=== PATIENT | male | born 1955 | race Caucasian/White ===

== ENCOUNTER 2021-09-25 20:22 | Emergency (ER) | payer MEDICARE, SELFPAY ==
[2021-09-25 20:22] VITALS: BP 180/96; PULSE 76; RESP 16; TEMP 36.8; O2SAT 98; BMI 25.8
[2021-09-25 21:23] LABS: Color, Urine Yellow (Yellow); Glucose, Dipstick Normal (Normal); Ketone-Dipstick 15 mg/dl (Negative); Leukocyte Esterase-Dipstick 25 /ul (Negative); Nitrite-Dipstick Negative (Negative); Occult Blood-Urine 150 /ul (Negative); Protein-Dipstick 30 mg/dl (Negative); Urine Bilirubin Dipstick Negative (Negative); Urine Clarity Clear (Clear); Urine Urobilinogen 1 mg/dl (Normal)
--- NOTE | 2021-09-25 21:29 | CT_ITS ---
STUDY: CT ABDOMEN AND PELVIS WITHOUT CONTRAST REASON FOR EXAM: Male, 66 years old. Kidney Stone RT SIDED ABD PAIN HX:KIDNEY STONES RADIATION DOSAGE (If Supplied By Facility): CTDIvol = ( 9.25 ) mGy, DLP = ( 506.24 ) mGycm TECHNIQUE: Transaxial images were obtained from the dome of the diaphragm to the symphysis pubis without oral contrast, and without intravenous contrast. Sagittal and coronal images were reconstructed. Individualized dose optimization techniques were used for this CT. COMPARISON: None. FINDINGS: LOWER CHEST: Included lung bases are clear. Moderate coronary artery calcifications. LIVER: Small cyst in the left lobe. GALLBLADDER AND BILIARY TREE: Grossly unremarkable. PANCREAS: Grossly unremarkable. SPLEEN: Grossly unremarkable. ADRENAL GLANDS: Grossly unremarkable. KIDNEYS AND URETERS: There is a 3 mm calculus in the distal right ureter immediately proximal to the ureterovesical junction. Right ureter is dilated with moderate right hydronephrosis, perinephric and periureteral stranding. No other calculi demonstrated. No hydronephrosis on the left. Small low-attenuation structures in the right kidney likely cysts but not completely assessed without contrast. PERITONEUM: No free air. No free fluid. BOWEL: Diverticula throughout the colon No bowel obstruction. APPENDIX: Visualized and unremarkable. No evidence of acute appendicitis. VESSELS: Abdominal aorta is normal caliber. REPRODUCTIVE ORGANS: Prostate enlarged. URINARY BLADDER: Minimally distended. ABDOMINAL WALL: Small bilateral inguinal hernias containing only fat, no bowel. BONES: Bilateral pars defects at L5 with grade 2 spondylolisthesis at L5-S1, and degenerative changes. CT/Abdomen/Pelvis without Cont IMPRESSION: Distal right ureteral calculus with moderate right hydroureteronephrosis. Enlarged prostate. Colonic diverticulosis without evidence of acute diverticulitis. Electronically Signed: Helena Griggs MD at 22:14 EDT ,
--- NOTE | 2021-09-25 21:30 | EX.ED.DYSGE1 ---
HPI History of Present Illness Chief Complaint: Flank Pain Narrative Narrative: Intermittent right flank pain started Thursday evening lasted 2 hours. This evening it returned. No dysuria. No fevers. No nausea or vomiting. Currently symptoms subsided. History of multiple kidney stones in the past however last time was over 10 years ago. No interventions. He denies any other past medical history no daily medicines however is not seen a PCP in 10 years. Denies any allergies. Prior similar symptoms: Yes PFSH PFSH Home Medications ibuprofen 600 mg tablet 600 mg PO 4X/DAY PRN Pain Or Fever #20 tabs 09/25/21 [Rx Last Taken Unknown] ondansetron 4 mg disintegrating tablet 4 mg PO Q6H PRN nausea and vomiting #10 tabs 09/25/21 [Rx Last Taken Unknown] oxycodone-acetaminophen 5 mg-325 mg tablet (Percocet) 1 tab PO Q6H PRN pain 3 days #12 tabs 09/25/21 [Rx Last Taken Unknown] Allergy/AdvReac Type Severity Reaction Status Date / Time No Known Allergies Allergy Verified 09/25/21 20:24 Social History Smoking Status: Never smoker ROS ROS ED Constitutional Constitutional ED: Denies chills, fever(s) or sweats Eyes Eyes: Denies change in vision ENT ENT ED: Denies dysphagia or sore throat Cardiovascular Cardiovascular: Denies chest pain, leg edema, palpitations or racing heartbeat Respiratory/Chest Respiratory/Chest: Denies cough, dyspnea or dyspnea on exertion Gastrointestinal Gastrointestinal: Denies abdominal pain, diarrhea, nausea or vomiting Genitourinary Genitourinary ED: Denies dysuria, hematuria or urinary frequency Musculoskeletal Musculoskeletal: Reports back pain; Denies extremity pain or neck pain Integumentary Denies rash or wounds Neurologic Neurologic: Denies headache(s), paresthesias or weakness EXAM Physical Exam Const Vital Signs: 09/25/21 20:22 09/25/21 21:45 09/25/21 21:55 Temperature 98.2 F Temperature Source Temporal Pulse Rate 76 Respiratory Rate 16 17 Respiratory Effort Normal Blood Pressure 180/96 H Blood Pressure Mean 124 Pulse Ox 98 Oxygen Delivery Method Room Air 09/25/21 22:57 Temperature Temperature Source Pulse Rate 66 Respiratory Rate 17 Respiratory Effort Blood Pressure 128/74 H Blood Pressure Mean Pulse Ox 99 Oxygen Delivery Method Positive well nourished and well developed General Appearance ED: well developed and NAD HEENT Reports moist mucous membranes normocephalic and atraumatic Eyes PERRL, EOMs intact bilaterally and conjunctivae normal General Eye ED: Yes normal appearance of both eyes Neck no lymphadenopathy and supple General: Negative for tenderness Chest Wall Chest: Negative for tenderness Resp normal respiratory effort and normal air movement Effort and Inspection: symmetric chest movement; Negative for respiratory distress Cardio regular rate, regular rhythm and no murmurs Peripheral Pulses: pulses 2+ throughout GI normal to inspection, nondistended, normoactive bowel sounds and non-tender Palpation: Negative for guarding or rebound tenderness present Back/Spine no CVA tenderness and no thoracic nor lumbar tenderness Extremity normal to inspection General Extremety ED: Negative for edema or tenderness General Extremity: Negative for edema Neuro oriented x3 and no sensory deficits noted Sensorium / Orientation: awake and alert Skin no rashes or lesions noted and no wounds MDM MDM MDM Narrative Medical decision making narrative: Patient reporting colic symptoms currently was in no signal discomfort. However there is history work-up was initiated. Labs are stable urine notes hematuria with no infection. Prior to go to CT pain was increasing improved with Toradol. Zofran also given. CT scan results 3 mm right distal ureteral stone with hydronephrosis also noted stranding in the area. However there is no infection. Pain controlled on reevaluation. Prescription for Zofran, ibuprofen, Percocet written for symptom control urology follow-up with return precautions. All questions were answered. Lab Data Attestation: I reviewed the patient's lab results. Labs: Laboratory Results - last 24 hr 09/25/21 09/25/21 09/25/21 20:44 21:40 21:40 WBC 9.6 RBC 4.50 L Hgb 14.9 Hct 43.5 MCV 96.7 H MCH 33.1 H MCHC 34.3 RDW Std Deviation 47.0 H RDW Coeff of Monica 13.2 Plt Count 324 MPV 9.2 Immature Gran % (Auto) 0.300 Neut % (Auto) 76.7 H Lymph % (Auto) 15.7 L [place] % (Auto) 6.0 Eos % (Auto) 0.9 Baso % (Auto) 0.4 Absolute Neuts (auto) 7.3 Absolute Lymphs (auto) 1.50 Nucleated RBC % 0 Sodium 137 Potassium 3.6 Chloride 104 Carbon Dioxide 25.0 Anion Gap 8 BUN 18 Creatinine 0.93 Estim Creat Clear Calc 73.55 Est GFR (MDRD) Af Amer 104 Est GFR (MDRD) Non-Af 86 BUN/Creatinine Ratio 19.3 Glucose 126 H Calcium 9.1 Urine Color Yellow Urine Clarity Clear Urine pH 5.0 Ur Specific [place] 1.030 U Specif Grav (Refrac) Urine Protein 30 H Urine Glucose (UA) Normal Urine Ketones 15 H Urine Occult Blood 150 H Urine Nitrite Negative Urine Bilirubin Negative Urine Urobilinogen 1 H Ur Leukocyte Esterase 25 H Urine RBC 5-10 SEEN Urine WBC 0-5 SEEN Ur Squamous Epith Cells 0-5 SEEN Ur Transition Epith Cell Ur Renal Epithelial Cell Calcium Oxalate Crystal 4+ Uric Acid Crystals Triple Phos Crystals Other Crystals Amorphous Sediment Urine Bacteria 1+ Hyaline Casts Fine Granular Casts Coarse Granular Casts Waxy Casts RBC Casts WBC Casts Urine Mucus 2+ Urine Trichomonas Urine Yeast 09/25/21 21:44 WBC RBC Hgb Hct MCV MCH MCHC RDW Std Deviation RDW Coeff of Monica Plt Count MPV Immature Gran % (Auto) Neut % (Auto) Lymph % (Auto) [place] % (Auto) Eos % (Auto) Baso % (Auto) Absolute Neuts (auto) Absolute Lymphs (auto) Nucleated RBC % Sodium Potassium Chloride Carbon Dioxide Anion Gap BUN Creatinine Estim Creat Clear Calc Est GFR (MDRD) Af Amer Est GFR (MDRD) Non-Af BUN/Creatinine Ratio Glucose Calcium Urine Color Cancelled Urine Clarity Cancelled Urine pH Cancelled Ur Specific [place] Cancelled U Specif Grav (Refrac) Cancelled Urine Protein Cancelled Urine Glucose (UA) Cancelled Urine Ketones Cancelled Urine Occult Blood Cancelled Urine Nitrite Cancelled Urine Bilirubin Cancelled Urine Urobilinogen Cancelled Ur Leukocyte Esterase Cancelled Urine RBC Cancelled Urine WBC Cancelled Ur Squamous Epith Cells Cancelled Ur Transition Epith Cell Cancelled Ur Renal Epithelial Cell Cancelled Calcium Oxalate Crystal Cancelled Uric Acid Crystals Cancelled Triple Phos Crystals Cancelled Other Crystals Cancelled Amorphous Sediment Cancelled Urine Bacteria Cancelled Hyaline Casts Cancelled Fine Granular Casts Cancelled Coarse Granular Casts Cancelled Waxy Casts Cancelled RBC Casts Cancelled WBC Casts Cancelled Urine Mucus Cancelled Urine Trichomonas Cancelled Urine Yeast Cancelled Radiography Diagnostic Testing: Clinical Impression(s) from Imaging Studies Abdomen/Pelvis CT 09/25/21 21:29 IMPRESSION: Distal right ureteral calculus with moderate right hydroureteronephrosis. Enlarged prostate. Colonic diverticulosis without evidence of acute diverticulitis. Electronically Signed: Helena Griggs MD at 22:14 EDT Reading Location ID and State: [address] [place] [address] Tel , Service support , Discharge Plan Triage Chief Complaint: Flank Pain ED Provider: Shimon Luz Dx/Rx/DC Orders Clinical Impression: Kidney stone on right side, Hematuria Instructions: ED Hematuria, ED Kidney Stone w/ Colic Prescriptions: New oxycodone-acetaminophen [Percocet] 5-325 mg tablet 1 tab PO Q6H PRN (Reason: pain) 3 Days Qty: 12 0RF ibuprofen 600 mg tablet 600 mg PO 4X/DAY PRN (Reason: Pain Or Fever) Qty: 20 0RF ondansetron 4 mg tablet,disintegrating 4 mg PO Q6H PRN (Reason: nausea and vomiting) Qty: 10 0RF Primary Care Provider: Care Physician,No Primary Referrals: Darion Howard MD [NON-STAFF] - Ghulam Watt MD [STAFF PHYSICIAN] - 3-5 Days Activity Restrictions/Additional Instructions: 3 mm right distal ureteral stone. Take medications as prescribed. Follow-up with urology. Return if any worsening symptoms. Disposition Disposition: Home, Self Care
[2021-09-25 21:45] VITALS: RESP 17
[2021-09-25] MEDS: 0.9% Normal Saline 1,000 ML 250 ML IV (21:45)
[2021-09-25 21:50] LABS: Bacteria 1+ /hpf (None Seen); Calcium Oxalate Crystals Ur 4+ /hpf (<or=2+); Mucous, Urine 2+ /hpf (<or=2+); Red Blood Cells-Urine 5-10 SEEN /hpf (0-5); Squamous Epithelial Cells - UA 0-5 SEEN /hpf (0-5); White Blood Cells 0-5 SEEN /hpf (0-5)
[2021-09-25 21:51] LABS: Absolute Neutrophil Count 7.3 X10^3/uL (2.0-7.7); Basophil# 0.04 X10^3/uL; Basophil% 0.4 % (0-1); Eosinophil# 0.09 X10^3/uL; Eosinophils% 0.9 % (0-5); Hematocrit 43.5 % (40-54); Hemoglobin 14.9 g/dL (13.0-16.5); Lymphocyte % 15.7 % (19-41); Mean Corp Hgb Conc 34.3 g/dL (32-36); Mean Corpuscular Hgb 33.1 pg (27.0-32.0); Mean Corpuscular Volume 96.7 fL (80-94); Mean Platelet Vol. 9.2 fl (6.2-12.0); Monocyte# 0.57 X10^3/uL; NRBC Flagged by Analyzer 0 % (0-5); Neutrophil # 7.32 X10^3/uL (2.7-7.7); Neutrophil % 76.7 % (47-70); Platelet Count 324 K/mm3 (150-450); RBC Distribution Width CV 13.2 % (11.6-14.6); White Blood Count 9.6 K/mm3 (4.4-11.0)
[2021-09-25] MEDS: Ketorolac 15 MG/ML Vial IV (21:53)
[2021-09-25 22:11] LABS: Anion Gap 8 (5-15); BUN 18 mg/dL (7-18); BUN/Creat Ratio 19.3 RATIO (10-20); Calcium,Total 9.1 mg/dL (8.5-10.1); Chloride 104 mmol/L (98-107); Creatinine, Serum 0.93 mg/dL (0.70-1.30); EST Glomerular Filtration Rate 86 mL/min (>60); Est Glom Filt Rate - Afr Amer 104 mL/min (>60); Estimated Creatinine Clearance 73.55 ml/min; Glucose 126 mg/dL (74-106); Potassium 3.6 mmol/L (3.5-5.1); Sodium Level 137 mmol/L (136-145)
[2021-09-25 22:57] VITALS: BP 128/74; PULSE 66; RESP 17; O2SAT 99
== END 2021-09-25 23:12 | disposition home or self-care (01) ==
PROVIDERS: Emergency Provider Emergency Medicine; Visit Provider Emergency Medicine
DX: N13.2 Hydronephrosis with renal and ureteral calculous obstruction (principal); R31.9 Hematuria, unspecified; Z79.899 Other long term (current) drug therapy
CPT/HCPCS: 74176; 80048; 81001; 85025; 96361; 96374; 99284; J7030; A4216

== ENCOUNTER → 2022-07-21 | Outpatient (CLI) | payer MEDICARE, SELFPAY ==
[2022-07-23 13:08] LABS: PSA, Free 0.97 ng/mL; PSA, Free % 27.5 % (.)
== END | disposition home or self-care (01) ==
PROVIDERS: PCP Student in an Organized Health Care Education/Training Program; Referring Provider Urology; Visit Provider Urology
DX: R97.20 Elevated prostate specific antigen [PSA] (principal)
CPT/HCPCS: 36415; 84153; 84154

== ENCOUNTER → 2023-01-19 | Outpatient (CLI) | payer MEDICARE, SELFPAY | END | disposition home or self-care (01) | LOC: LAB 07:27 | PROVIDERS: PCP Student in an Organized Health Care Education/Training Program; Referring Provider Urology; Visit Provider Urology | DX: R97.20 Elevated prostate specific antigen [PSA] (principal) | CPT/HCPCS: 36415; 84153 ==

== ENCOUNTER 2023-09-07 11:05 | Inpatient (IN) | payer MEDICARE, SELFPAY ==
[2023-09-07] VITALS (9 sets, daily range): BP systolic 144–171; BP diastolic 80–91; PULSE 65–77; RESP 10–20; TEMP 36.3–36.8; O2SAT 89–98; BMI 25.7; BMI 25.4
--- NOTE | 2023-09-07 11:10 | NURSING ---
NO OLD EKGS
--- NOTE | 2023-09-07 11:25 | ED.VIS.CHEST ---
HPI History of Present Illness Chief Complaint: Chest Pain Informant: patient Onset/Context/Timing Onset: Weeks Activity at onset: gradual Timing: Intermittent Quality: Positive for Sharp Location: Substernal Worsened By: Exertion Relieved By: Rest Associated Symptoms: Positive for Diaphoresis, Acid Reflux and Palpitations; Negative for Nausea, Vomiting, Dyspnea, Cough, Fever or Lightheadedness Narrative Narrative: Patient presents with chest pain that has been intermittent over the past couple weeks. Patient states it is worse whenever he exerts himself. Patient states it gets better with rest. Patient states that initially it would get better when he stopped doing any activity. Patient states that over the last few days his pain would get better after resting for approximately 30 to 60 minutes. Patient states the pain is sharp. Patient states it is over the lower substernal area. Patient admits to some slight diaphoresis with the pain. Patient admits to some reflux symptoms. Patient also admits to some palpitations. CVD Risk Factors: Positive for Hypercholesterolemia; Negative for Hypertension, Diabetes, Family History 1' </=55 or Smoking PE Risk Factors: Negative for Recent Travel/Surgery, Recent Immobilization, Prior DVT or PE, Cancer or OCP + Smoking + >/=35 [facility] Medical History GERD (gastroesophageal reflux disease) Hypercholesteremia Home Medications ?Medication ?Instructions ?Recorded ?Last Taken ?Type cholecalciferol (vitamin D3) 25 25 mcg PO DAILY 09/07/23 09/07/23 History mcg (1,000 unit) capsule folic acid 1 mg tablet 1 mg PO DAILY 09/07/23 09/07/23 History omeprazole 20 mg capsule,delayed 20 mg PO DAILY 09/07/23 09/07/23 History release pyridoxine (vitamin B6) 25 mg 25 mg PO DAILY 09/07/23 09/07/23 History tablet rosuvastatin 10 mg tablet 10 mg PO QHS 09/07/23 09/06/23 History saw palmetto 160 mg capsule 160 mg PO DAILY 09/07/23 09/07/23 History zinc sulfate 50 mg zinc (220 mg) 50 mg PO DAILY 09/07/23 09/07/23 History tablet Allergy/AdvReac Type Severity Reaction Status Date / Time No Known Allergies Allergy Verified 09/07/23 11:05 Surgical History no surgical history no surgical history Social History Smoking Status: Never smoker ROS ROS ED Constitutional Constitutional ED: Denies chills or fever(s) Eyes Eyes: Denies blurry vision or change in vision ENT ENT ED: Denies rhinorrhea or sore throat Cardiovascular Cardiovascular: Reports chest pain and palpitations Respiratory/Chest Respiratory/Chest: Denies cough or dyspnea Gastrointestinal Gastrointestinal: Denies nausea or vomiting Genitourinary Genitourinary ED: Denies dysuria or hematuria Musculoskeletal Musculoskeletal: Denies back pain or neck pain Integumentary Denies abscess or rash Neurologic Neurologic: Denies headache(s) or weakness Allergic/Immunologic Allergic/Immunologic ED: Denies mouth swelling or urticaria EXAM Physical Exam Const Vital Signs: 09/07/23 11:06 09/07/23 11:17 09/07/23 11:35 Temperature 97.4 F L Temperature Source Temporal Pulse Rate 73 Respiratory Rate 18 Respiratory Effort Normal Blood Pressure 157/82 H Blood Pressure Mean 107 Pulse Ox 98 Oxygen Delivery Method Room Air Room Air 09/07/23 12:05 09/07/23 12:15 09/07/23 12:45 Temperature Temperature Source Pulse Rate 77 67 73 Respiratory Rate 13 12 13 Respiratory Effort Blood Pressure 144/81 H 150/80 H 164/88 H Blood Pressure Mean 102 101 110 Pulse Ox 97 97 98 Oxygen Delivery Method Room Air 09/07/23 12:46 Temperature 98.2 F Temperature Source Pulse Rate 74 Respiratory Rate 15 Respiratory Effort Blood Pressure 164/88 H Blood Pressure Mean 113 Pulse Ox 98 Oxygen Delivery Method Positive well nourished and well developed General Appearance ED: well developed and NAD HEENT Reports moist mucous membranes Neck supple and no JVD Resp normal respiratory effort and clear to auscultation bilaterally Cardio regular rate and regular rhythm GI soft to palpation, non-tender and non-distended Extremity normal to inspection General Extremety ED: Negative for edema or tenderness General Extremity: Negative for edema Neuro oriented x3, CN's II-XII intact bilaterally and no sensory deficits noted Sensorium / Orientation: awake and alert Motor Exam: strength 5/5 throughout Psych mental status grossly normal Heart Score History: Moderately Suspicious ECG: Normal Age: >/= 65 years Risk Factors: 1 or 2 Risk Factors Troponin: >/=3 x Normal Limit Score: 6 MDM MDM MDM Narrative Medical decision making narrative: Differential diagnosis includes cardiac dysrhythmia, cardiac ischemia, pneumonia, electrolyte abnormality, pneumothorax, and anxiety. EKG will be obtained to assess for cardiac dysrhythmia and cardiac ischemia. CBC will be obtained to assess for leukocytosis and anemia. Basic metabolic profile will be obtained to assess for electrolyte abnormality and renal function. High-sensitivity troponin will be obtained to assess for cardiac ischemia. 2-hour repeat high-sensitivity troponin will be obtained to assess for ongoing cardiac ischemia. Lab Data Attestation: I reviewed the patient's lab results. Lab results narrative: CBC was reviewed and was within normal limits. Basic metabolic profile was reviewed and was within normal limits. High-sensitivity troponin was reviewed and was elevated at 369. Labs: Laboratory Results - last 24 hr 09/07/23 11:20 WBC 6.5 RBC 4.86 Hgb 15.4 Hct 46.6 MCV 95.9 H MCH 31.7 MCHC 33.0 RDW Std Deviation 46.5 H RDW Coeff of Monica 13.0 Plt Count 353 MPV 9.2 Immature Gran % (Auto) 0.200 Neut % (Auto) 61.0 Lymph % (Auto) 28.3 [place] % (Auto) 7.5 Eos % (Auto) 2.1 Baso % (Auto) 0.9 Absolute Neuts (auto) 4.0 Absolute Lymphs (auto) 1.85 Nucleated RBC % 0 PT 13.2 INR 1.0 APTT 29.6 Sodium 136 Potassium 4.1 Chloride 104 Carbon Dioxide 28.0 Anion Gap 4 L BUN 14 Creatinine 0.88 Estim Creat Clear Calc 76.65 Est GFR (MDRD) Af Amer 110 Est GFR (MDRD) Non-Af 91 BUN/Creatinine Ratio 15.8 Glucose 114 H Calcium 9.3 Troponin I High Sens 369 H* Radiography Chest X-Ray - ED: 1 View, Read by ED Physician, Read by Radiologist and No Acute Disease Diagnostic Testing: Clinical Impression(s) from Imaging Studies Chest X-Ray 09/07/23 11:40 IMPRESSION: Normal x-ray examination of the chest. Electronically Signed: Anup Navarro MD at 12:15 EDT , Portable 1 view chest x-ray was obtained. On my independent interpretation, lung suarez are clear. There is normal cardiac silhouette. Bony thorax is normal. There is no acute process noted. Radiologist also interpreted the x-ray and agrees. EKG Initial EKG: Attestation: I personally reviewed and interpreted this EKG as follows: Interpretation: Sinus Rhythm (78) and No Acute Injury Pattern Comments: EKG was obtained. On my independent interpretation, it showed a normal sinus rhythm with a rate of 78. [place] interval, QRS interval, and QTc intervals were all normal. There is left axis deviation at -32. There are no acute ST or T wave changes. Prior EKG tracings: not available for review Prior: No Prior Management Discussion w/another healthcare provider: Hospitalist Treatment and Re-Evaluation :: Patient was given aspirin. Patient was not currently having chest pain. Patient was started on heparin. Patient was advised of his findings. Patient has a HEART score of 6. Patient was advised of the need for admission to the hospital for for further evaluation. Case was discussed with the hospitalist. She recommended contacting cardiology to see if he wanted to do a cardiac cath today. Case was discussed with Dr. Gao from cardiology. He will wait until tomorrow to do any intervention. Hospitalist will admit the patient to her service. Patient and family understood and was agreeable with the plan. All questions were answered. Discharge Plan Triage Chief Complaint: Chest Pain ED Provider: Jeferson Michelle Dx/Rx/DC Orders Clinical Impression: NSTEMI, initial episode of care, Chest pain, Elevated blood pressure reading Prescriptions: No Action omeprazole 20 mg capsule,delayed release(DR/EC) 20 mg PO DAILY rosuvastatin 10 mg tablet 10 mg PO QHS folic acid 1 mg tablet 1 mg PO DAILY saw palmetto 160 mg capsule 160 mg PO DAILY Rx Instructions: give with meal/snack pyridoxine (vitamin B6) 25 mg tablet 25 mg PO DAILY zinc sulfate 50 mg zinc (220 mg) tablet 50 mg PO DAILY cholecalciferol (vitamin D3) 25 mcg (1,000 unit) capsule 25 mcg PO DAILY Primary Care Provider: Bernabe Zhang Referrals: Bernabe Zhagn DO [Primary Care Provider] - Print Language: Maori Disposition Disposition: Acute Care Hospital [facility]
--- NOTE | 2023-09-07 11:30 | EKG12_ITS ---
Test Reason : Blood Pressure : / mmHG Vent. Rate : 078 BPM Atrial Rate : 078 BPM P-R Int : 128 ms QRS Dur : 100 ms QT Int : 382 ms P-R-T Axes : 051 -32 050 degrees QTc Int : 435 ms Normal sinus rhythm Left axis deviation Abnormal ECG Confirmed by Ji Dominguez ([id number]), publishing editor ALEJANDRINA DE ([id number]) on 09/08/2023 9:08:10 AM Referred By: LUANA Confirmed By:Ji Dominguez
[2023-09-07] MEDS: Aspirin 81 MG TAB.CHEW 324 MG PO (11:39)
--- NOTE | 2023-09-07 11:40 | RAD_ITS ---
STUDY: X-RAY CHEST REASON FOR EXAM: Male, 67 years old. Chest pain TECHNIQUE: Single AP portable view of the chest. COMPARISON: None. FINDINGS: EKG electrodes are seen. The lungs are clear and expanded. There is no demonstrated pleural abnormality. Normal size heart. Normal mediastinum and evy. Normal visualized pulmonary arteries. Normal visualized aortic arch and descending thoracic aorta. There are diffuse degenerative changes of the visualized thoracic spine. Normal visualized ribs, clavicles, and shoulders. There is no demonstrated abnormality of the visualized soft tissue structures of the upper abdomen. RAD/Chest 1 View (Portable) IMPRESSION: Normal x-ray examination of the chest. Electronically Signed: Anup Navarro MD at 12:15 EDT ,
[2023-09-07 11:43] LABS: Absolute Lymphocyte Count 1.85 X10^3/uL (0.83-4.51); Basophil# 0.06 X10^3/uL; Basophil% 0.9 % (0-1); Eosinophil# 0.14 X10^3/uL; Eosinophils% 2.1 % (0-5); Hematocrit 46.6 % (40-54); Hemoglobin 15.4 g/dL (13.0-16.5); Lymphocyte # 1.85 X10^3/ul (0.83-4.51); Lymphocyte % 28.3 % (19-41); Mean Corpuscular Hgb 31.7 pg (27.0-32.0); Mean Corpuscular Volume 95.9 fL (80-94); Mean Platelet Vol. 9.2 fl (6.2-12.0); Monocyte# 0.49 X10^3/uL; Monocyte% 7.5 % (0-10); NRBC Flagged by Analyzer 0 % (0-5); Neutrophil # 3.99 X10^3/uL (2.7-7.7); Platelet Count 353 K/mm3 (150-450); RBC Distribution Width SD 46.5 fl (35.1-43.9); Red Blood Count 4.86 M/mm3 (4.6-6.2); White Blood Count 6.5 K/mm3 (4.4-11.0)
[2023-09-07 12:03] LABS: Anion Gap 4 (5-15); BUN 14 mg/dL (7-18); BUN/Creat Ratio 15.8 RATIO (10-20); Calcium,Total 9.3 mg/dL (8.5-10.1); Chloride 104 mmol/L (98-107); Creatinine, Serum 0.88 mg/dL (0.70-1.30); EST Glomerular Filtration Rate 91 mL/min (>60); Est Glom Filt Rate - Afr Amer 110 mL/min (>60); Estimated Creatinine Clearance 76.65 ml/min; Glucose 114 mg/dL (74-106); Potassium 4.1 mmol/L (3.5-5.1); Sodium Level 136 mmol/L (136-145); Troponin-I HS (w/2H Reflex) 369 pg/mL (3.0-78.0)
[2023-09-07] MEDS: Heparin Injection (Vial) 5,000 UNIT/ML VIAL 4000 UNIT IV (12:41)
[2023-09-07] MEDS: HEPARIN/D5w 25,000 UNITS 25,000 UNITS/250 ML IV.SOLN. 9 UNITS CONT INF (12:41)
[2023-09-07 12:43] LABS: Prothrombin Time (Protime)PT. 13.2 SECONDS (11.7-14.9)
[2023-09-07 12:45] LABS: Partial Thromboplast Time 29.6 Seconds (24.1-36.2)
--- NOTE | 2023-09-07 12:59 | PCM.HP.STD ---
HPI - General General Date of Admission: 09/07/23 Date of Service: 09/07/23 Chief Complaint: Chest pain HPI Narrative WILFRIDO SPRING, is a 67 M with a PMH of hyperlipidemia who presents via the ED on 09/07/2023 with complaint of chest pain which have been going on for about a month. Chest pain was initially noticed with exertion and It was relieved by rest. He denied any shortness of breath, palpitations, dizziness, nausea vomiting or any other symptoms. Chest pain did not radiate up his neck or down his arm. He did not think much of it but realized about the last week that the chest pain has become more frequent. It really worsened the day before admission when he was doing some painting in his house. Again the chest pain was worsened by exertion and relieved by rest. He was worried that there may be something going on with his heart so he decided to come into the ED. He has never had any heart attack and does not have any stents. He denies any history of smoking and states he uses alcohol occasionally. Review of systems otherwise negative. Vitals in the ED were blood pressure 164/88, pulse rate of 74, respirate rate of 15 and temp of 98.2 Fahrenheit. He was saturating at 98% on room air. CBC was unremarkable. BMP also unremarkable, and initial troponin was 369. EKG showed no acute ST changes and CXR showed no acute cardiopulmonary pathology. He has been admitted to be managed for non-STEMI [facility] Medical History (Updated 09/07/23 @ 14:17 by Malka Samson) Kidney stones Non-smoker Myocardial infarct GERD (gastroesophageal reflux disease) Hypercholesteremia Home Medications ?Medication ?Instructions ?Recorded ?Last Taken ?Type cholecalciferol (vitamin D3) 25 25 mcg PO DAILY 09/07/23 09/07/23 History mcg (1,000 unit) capsule folic acid 1 mg tablet 1 mg PO DAILY 09/07/23 09/07/23 History omeprazole 20 mg capsule,delayed 20 mg PO DAILY 09/07/23 09/07/23 History release pyridoxine (vitamin B6) 25 mg 25 mg PO DAILY 09/07/23 09/07/23 History tablet rosuvastatin 10 mg tablet 10 mg PO QHS 09/07/23 09/06/23 History saw palmetto 160 mg capsule 160 mg PO DAILY 09/07/23 09/07/23 History zinc sulfate 50 mg zinc (220 mg) 50 mg PO DAILY 09/07/23 09/07/23 History tablet Allergy/AdvReac Type Severity Reaction Status Date / Time No Known Allergies Allergy Verified 09/07/23 11:05 Surgical History no surgical history Social History Smoking Status: Never smoker ROS Constitutional Constitutional: Denies anorexia, chills, fatigue, fever(s), malaise or night sweats ENT HEENT: Denies dysphagia, headache(s) or hearing loss Cardiovascular Cardiovascular: Reports chest pain; Denies dyspnea on exertion, edema, lightheadedness, orthopnea, palpitations, paroxysmal nocturnal dyspnea, rapid heart rate or syncope Respiratory/Chest Respiratory/Chest: Denies cough, dyspnea, excessive phlegm production, hemoptysis, productive cough, shortness of breath at rest, shortness of breath with exertion or wheezing Gastrointestinal Gastrointestinal: Denies abdominal pain, constipation or diarrhea Genitourinary Genitourinary: Denies dysuria or hematuria Neurologic Neurologic: Denies confusion, dizziness or focal weakness Psychiatric Psychiatric: Denies anxiety or depression Vital Signs Vital Signs Vital Signs: 09/07/23 11:06 09/07/23 11:17 09/07/23 11:35 Temperature 97.4 F L Temperature Source Temporal Pulse Rate 73 Respiratory Rate 18 Respiratory Effort Normal Blood Pressure 157/82 H Blood Pressure Mean 107 Pulse Ox 98 Oxygen Delivery Method Room Air Room Air 09/07/23 12:05 09/07/23 12:15 09/07/23 12:45 Temperature Temperature Source Pulse Rate 77 67 73 Respiratory Rate 13 12 13 Respiratory Effort Blood Pressure 144/81 H 150/80 H 164/88 H Blood Pressure Mean 102 101 110 Pulse Ox 97 97 98 Oxygen Delivery Method Room Air 09/07/23 12:46 Temperature 98.2 F Temperature Source Pulse Rate 74 Respiratory Rate 15 Respiratory Effort Blood Pressure 164/88 H Blood Pressure Mean 113 Pulse Ox 98 Oxygen Delivery Method Weight Weight: 169 lb 3.2 oz Body Mass Index (BMI) 25.7 Physical Exam Const alert, oriented x3 and no apparent distress General Appearance: cooperative HEENT normocephalic, head/scalp atraumatic, hearing grossly normal bilaterally and moist oral mucous membranes Mouth: oral and palatal mucosa normal Eyes PERRL, EOMs intact bilaterally and conjunctivae normal Neck no lymphadenopathy and supple Resp normal respiratory effort, no retractions, no use of accessory muscles and clear to auscultation bilaterally Cardio regular rate, regular rhythm, S1 normal heart sound, S2 normal heart sound and no murmurs GI normal to inspection, nondistended, normoactive bowel sounds, soft to palpation and non-tender Extremity normal to inspection, full ROM and no clubbing, cyanosis or edema Neuro oriented x3, CN's II-XII intact bilaterally, moves all extremities and no focal motor deficits Sensorium / Orientation: awake and alert Motor Exam: strength 5/5 throughout Psych affect normal Results Lab / Micro Data 09/07/23 11:20 09/07/23 11:20 Labs: Laboratory Results - last 24 hr 09/07/23 11:20: WBC 6.5, RBC 4.86, Hgb 15.4, Hct 46.6, MCV 95.9 H, MCH 31.7, MCHC 33.0, RDW Std Deviation 46.5 H, RDW Coeff of Monica 13.0, Plt Count 353, MPV 9.2, Immature Gran % (Auto) 0.200, Neut % (Auto) 61.0, Lymph % (Auto) 28.3, [place] % (Auto) 7.5, Eos % (Auto) 2.1, Baso % (Auto) 0.9, Absolute Neuts (auto) 4.0, Absolute Lymphs (auto) 1.85, Nucleated RBC % 0, PT 13.2, INR 1.0, APTT 29.6, Sodium 136, Potassium 4.1, Chloride 104, Carbon Dioxide 28.0, Anion Gap 4 L, BUN 14, Creatinine 0.88, Estim Creat Clear Calc 76.65, Est GFR (MDRD) Af Amer 110, Est GFR (MDRD) Non-Af 91, BUN/Creatinine Ratio 15.8, Glucose 114 H, Calcium 9.3, Troponin I High Sens 369 H* Imaging Radiology Impression Chest X-Ray 09/07/23 11:40 IMPRESSION: Normal x-ray examination of the chest. Electronically Signed: Anup Navarro MD at 12:15 EDT , Assessment & Plan Assessment/Plan (1) NSTEMI, initial episode of care: PLAN: Plan #Nonstemi admitted with a complaint of chest pain which worsened with exertion and relieved by rest. initial troponin was 369. EKG showed no acute ST changes cycle troponins. PO aspirin 81mg daily, high intensity statin stared on heparin drip. cardiology consulted. will benefit from cardiac cath 2D echo ordered. #Hyperlipidemia: on statin. #Elevated blood pressure BP elevated at 164/88. Not a known hypertensive IV hydralazine if BP remains elevated, will start on PO BP meds; in light of nonstemi, will benefit from beta beverly and CORNELIA-I DVT prophylaxis:heparin drip CODE STATUS: Full code Patient counseled extensively about different types of CODE STATUS including full code, DNR CCA and DNR CCA. Patient elects to be full code. Total [id number] time 17 minutes. Charges/Coding Visit Charges Inpatient E&M: 39074 Init Hosp L3 Procedures Hospitalists Procedures: 64465 Advncd Care Plan 30 Min
--- NOTE | 2023-09-07 13:35 | NURSING ---
PCAlexy LOPEZ, CP
[2023-09-07 13:38] LABS: Reflex Troponin-HS? (from REC) Y
--- NOTE | 2023-09-07 14:20 | ECHOCS_ITS ---
Reason For Study: Chest Pain Procedure This was a 2D Doppler, Color Flow transthoracic echocardiogram. Contrast injection was performed. Exam performed portable in patient room. Left Ventricle Normal LV size. Mild concentric left ventricular hypertrophy. Left ventricular systolic function is lower limits of normal. Stage 1 diastolic dysfunction. There is mild global hypokinesis of the left ventricle. Right Ventricle Normal RV size. Normal systolic function. Atria Normal left atrium. Normal right atrium. Mitral Valve Bileaflet diffuse mitral valve thickening. Mild focal mitral valve calcification of the anterior leaflet. Tricuspid Valve Normal tricuspid valve. Aortic Valve Trisinus/trileaflet aortic valve. Pulmonic Valve Normal pulmonic valve. Great Vessels Normal aortic root. The pulmonary artery is normal size. Normal inferior vena cava. Pericardium/Pleural No pericardial effusion. Medication Diluted definity 2ml given slow IV push to enhance endocardial definition. MMode/2D Measurements & Calculations LVIDd: 4.9 cm IVSd: 1.2 cm Ao root diam: 3.6 cm LVIDs: 3.9 cm LVPWd: 1.2 cm LA dimension: 4.2 cm RVDd: 3.9 cm FS: 20.5 % LAV(MOD-bp): 61.7 ml LVAd ap4: 40.9 cm2 SV(MOD-sp4): 77.5 ml LAV(MOD-bp) Indexed: 32.6 ml/m2 LVLd ap4: 9.0 cm LAV(MOD-sp2): 62.3 ml EDV(MOD-sp4): 151.9 ml LAV(MOD-sp4): 51.7 ml EDV(sp4-el): 158.5 ml LVAs ap4: 26.6 cm2 LVLs ap4: 7.9 cm ESV(MOD-sp4): 74.3 ml ESV(sp4-el): 76.3 ml EF(MOD-sp4): 51.0 % EF(sp4-el): 51.9 % SV(sp4-el): 82.2 ml LA A4 area: 18.9 cm2 RA A4 area: 12.7 cm2 TAPSE: 1.4 cm Time Measurements MV dec time: 0.24 sec Doppler Measurements & Calculations MV E max adam: 47.7 cm/sec Lat Peak E' Adam: 6.0 cm/sec Med Peak E' Adam: 7.3 cm/sec MV A max adam: 77.1 cm/sec E/E' lat: 8.0 E/E' med: 6.6 MV E/A: 0.62 MV V2 max: 76.3 cm/sec MV P1/2t max adam: 46.7 cm/sec Ao V2 max: 137.5 cm/sec MV max P.3 mmHg MV P1/2t: 92.3 msec Ao max P.6 mmHg MV V2 mean: 37.6 cm/sec Ao V2 mean: 93.5 cm/sec MV mean P.68 mmHg MV dec slope: 148.2 cm/sec2 Ao mean P.0 mmHg MV V2 VTI: 21.2 cm MVA(P1/2t): 2.4 cm2 Ao V2 VTI: 28.7 cm AV (velocity ratio): 0.67 LV V1 max: 89.7 cm/sec PA V2 max: 122.4 cm/sec LV V1 max P.2 mmHg PA V2 mean: 75.6 cm/sec LV V1 mean P.8 mmHg LV V1 mean: 62.9 cm/sec LV V1 VTI: 19.2 cm ECHO/Echo Complete W/ Contrast Interpretation Summary Normal LV size. Left ventricular systolic function is lower limits of normal. Mild concentric left ventricular hypertrophy. Stage 1 diastolic dysfunction. Bileaflet diffuse mitral valve thickening. Contrast injection was performed. Ordering Physician: Eleanor Rodriguez Performed By: Bran Hutchinson RCS
[2023-09-07 15:07] LABS: Troponin-I HS 536 pg/mL (3.0-78.0)
--- NOTE | 2023-09-07 17:26 | CON.PCM.CA_ITS ---
Assessment & Plan Assessment/Plan (1) NSTEMI, initial episode of care: PLAN: He presents with chest discomfort and a non-ST elevation myocardial infarction. My recommendation at this time will be for us to proceed with a left heart catheterization. He will be started on aspirin a beta-beverly high intensity statin. Depending on the findings further recommendations will be made. Risk benefits alternatives have been explained to him he understands and agrees to proceed. (2) Elevated blood pressure reading: PLAN: He does have elevated blood pressure without a previous reading of hypertension. We will start him on a beta-beverly as well as CORNELIA inhibitor obtain an echocardiogram to look at his wall thickness and assess for duration of hypertension. Depending on the findings further recommendations will be made. Thank you for allowing me to participate in the care of your patient. Please don't hesitate to call if any issues arise. HPI Consult Data Date of Consult: 09/07/23 HPI Narrative HPI Narrative: WILFRIDO SPRING, is a 67 M who presents with exertional chest discomfort. He says this has been going on over the last few weeks or so. It usually occurs with activity and goes away with rest. It has been happening more frequently and appears to last longer. This culminated in him having an episode yesterday with minimal activity. He mentioned this to his who asked that he come to the emergency room. In emergency room he was evaluated he was noted to be in sinus rhythm with mildly elevated blood pressure. Cardiac enzymes were noted to be abnormal cardiology was called for further evaluation and management. He does have a history of hyperlipidemia for which he has been on a statin. He denies any dizziness or diaphoresis near syncope or syncope. [facility] Medical History Kidney stones Non-smoker Myocardial infarct GERD (gastroesophageal reflux disease) Hypercholesteremia Home Medications ?Medication ?Instructions ?Recorded ?Last Taken ?Type cholecalciferol (vitamin D3) 25 25 mcg PO DAILY 09/07/23 09/07/23 History mcg (1,000 unit) capsule folic acid 1 mg tablet 1 mg PO DAILY 09/07/23 09/07/23 History omeprazole 20 mg capsule,delayed 20 mg PO DAILY 09/07/23 09/07/23 History release pyridoxine (vitamin B6) 25 mg 25 mg PO DAILY 09/07/23 09/07/23 History tablet rosuvastatin 10 mg tablet 10 mg PO QHS 09/07/23 09/06/23 History saw palmetto 160 mg capsule 160 mg PO DAILY 09/07/23 09/07/23 History zinc sulfate 50 mg zinc (220 mg) 50 mg PO DAILY 09/07/23 09/07/23 History tablet Allergy/AdvReac Type Severity Reaction Status Date / Time No Known Allergies Allergy Verified 09/07/23 11:05 Surgical History no surgical history Social History Smoking Status: Never smoker ROS Constitutional Constitutional: Denies anorexia, chills, fatigue, fever(s), malaise or night sweats ENT HEENT: Denies dysphagia, headache(s) or hearing loss Cardiovascular Cardiovascular: Reports chest pain; Denies dyspnea on exertion, edema, lightheadedness, orthopnea, palpitations, paroxysmal nocturnal dyspnea, rapid heart rate or syncope Respiratory/Chest Respiratory/Chest: Denies cough, dyspnea, excessive phlegm production, hemoptysis, productive cough, shortness of breath at rest, shortness of breath with exertion or wheezing Gastrointestinal Gastrointestinal: Denies abdominal pain, constipation or diarrhea Genitourinary Genitourinary: Denies dysuria or hematuria Neurologic Neurologic: Denies confusion, dizziness or focal weakness Psychiatric Psychiatric: Denies anxiety or depression Physical Exam Const alert, oriented x3 and no apparent distress General Appearance: cooperative HEENT hearing grossly normal bilaterally Head and Scalp: atraumatic Eyes EOMs intact bilaterally Neck General: normal visual inspection Chest inspection of chest normal and palpation of chest normal Resp normal respiratory effort Auscultation: clear to auscultation bilaterally Cardio regular rate, regular rhythm, S1 normal heart sound and S2 normal heart sound Jugular Venous Distention: JVD GI normal to inspection, nondistended, normoactive bowel sounds Extremity normal capillary refill and no pedal edema Peripheral Pulses: Yes pulses 2+ throughout and femoral pulses present Skin no rashes or lesions noted Neuro oriented x3 and CN's II-XII intact bilaterally Psych Appearance: grossly normal and appropriate Risk Stratification Risk Stratification Applicable: Yes Age >/= 65: Yes >/= 3 CAD Risk Factors (HTN, HLD, DM, family hx of CAD, or current smoker): No Aspirin Use in the Past 7 Days: No Severe Angina (>/= episodes in 24 hours): Yes EKG ST Changes >/= 0.5mm: No Positive Cardiac Marker: Yes MISSAEL Risk Stratification Score: 3 MISSAEL % Risk: 13% Risk Objective Data Vital Signs: Vital Signs Temp Pulse Resp BP Pulse Ox O2 Del Method 97.8 F 75 20 H 171/89 H 98 Room Air 09/07/23 14:18 09/07/23 14:18 09/07/23 14:18 09/07/23 14:18 09/07/23 14:18 09/07/23 14:29 Oxygen Delivery Method Room Air Weight: 167 lb 5.294 oz Body Mass Index (BMI) 25.4 Lab / Micro Data 09/07/23 11:20 09/07/23 11:20 Labs: Laboratory Results - last 24 hr 09/07/23 11:20: WBC 6.5, RBC 4.86, Hgb 15.4, Hct 46.6, MCV 95.9 H, MCH 31.7, MCHC 33.0, RDW Std Deviation 46.5 H, RDW Coeff of Monica 13.0, Plt Count 353, MPV 9.2, Immature Gran % (Auto) 0.200, Neut % (Auto) 61.0, Lymph % (Auto) 28.3, [place] % (Auto) 7.5, Eos % (Auto) 2.1, Baso % (Auto) 0.9, Absolute Neuts (auto) 4.0, Absolute Lymphs (auto) 1.85, Nucleated RBC % 0, PT 13.2, INR 1.0, APTT 29.6, Sodium 136, Potassium 4.1, Chloride 104, Carbon Dioxide 28.0, Anion Gap 4 L, BUN 14, Creatinine 0.88, Estim Creat Clear Calc 76.65, Est GFR (MDRD) Af Amer 110, Est GFR (MDRD) Non-Af 91, BUN/Creatinine Ratio 15.8, Glucose 114 H, Calcium 9.3, Troponin I High Sens 369 H* 09/07/23 14:10: Troponin I High Sens 536 H* Cardiology Labs/Tests 09/07/23 11:20: WBC 6.5, RBC 4.86, Hgb 15.4, Hct 46.6, MCV 95.9 H, MCH 31.7, MCHC 33.0, Plt Count 353, MPV 9.2, Immature Gran % (Auto) 0.200, Neut % (Auto) 61.0, Lymph % (Auto) 28.3, [place] % (Auto) 7.5, Eos % (Auto) 2.1, Baso % (Auto) 0.9, Absolute Neuts (auto) 4.0, Nucleated RBC % 0, PT 13.2, INR 1.0, APTT 29.6, Sodium 136, Potassium 4.1, Chloride 104, Carbon Dioxide 28.0, Anion Gap 4 L, BUN 14, Creatinine 0.88, Est GFR (MDRD) Af Amer 110, Est GFR (MDRD) Non-Af 91, BUN/Creatinine Ratio 15.8, Glucose 114 H, Calcium 9.3 Rhythm: EKG: ECHO: Stress Test: Cardiac Cath: PCI: CT Surgery: Holter monitor: EPS: PPM: CXR: Chest CT Scan: Radiography Diagnostic Testing: Radiology Impression Chest X-Ray 09/07/23 11:40 IMPRESSION: Normal x-ray examination of the chest. Electronically Signed: Anup Navarro MD at 12:15 EDT , Echocardiogram 09/07/23 14:20 Interpretation Summary Normal LV size. Left ventricular systolic function is lower limits of normal. Mild concentric left ventricular hypertrophy. Stage 1 diastolic dysfunction. Bileaflet diffuse mitral valve thickening. Contrast injection was performed. Ordering Physician: Eleanor Rodriguez Performed By: Bran Hutchinson RCS
[2023-09-07 18:31] LABS: Troponin-I HS 513 pg/mL (3.0-78.0)
[2023-09-07 18:41] LABS: Partial Thromboplast Time 47.7 Seconds (24.1-36.2)
--- NOTE | 2023-09-07 21:41 | NURSING ---
Messaged Dr Gao regarding heparin gtt stop time. Awaiting response, if staff do not get reply overnight regarding gtt will reach out again in am re stop time.
[2023-09-07] MEDS: Atorvastatin Calcium 20 MG Tablet PO (21:55)
[2023-09-08] VITALS (14 sets, daily range): BP systolic 114–171; BP diastolic 72–101; PULSE 70–82; RESP 15–18; TEMP 36.2–36.8; O2SAT 96–99
[2023-09-08 01:33] LABS: Partial Thromboplast Time 53.1 Seconds (24.1-36.2)
--- NOTE | 2023-09-08 05:55 | EKG12_ITS ---
Test Reason : AM EKG Blood Pressure : / mmHG Vent. Rate : 070 BPM Atrial Rate : 070 BPM P-R Int : 112 ms QRS Dur : 104 ms QT Int : 402 ms P-R-T Axes : 054 -35 031 degrees QTc Int : 434 ms Normal sinus rhythm Left axis deviation Abnormal ECG When compared with ECG of 07-SEP-2023 11:14, MANUAL COMPARISON REQUIRED, DATA IS UNCONFIRMED Confirmed by Ji Dominguez ([id number]), fan mail editor ALEJANDRINA DE ([id number]) on 09/08/2023 9:12:28 AM Referred By: Confirmed By:Ji Dominguez
[2023-09-08 06:57] LABS: Absolute Lymphocyte Count 2.18 X10^3/uL (0.83-4.51); Absolute Neutrophil Count 3.7 X10^3/uL (2.0-7.7); Basophil# 0.08 X10^3/uL; Basophil% 1.2 % (0-1); Eosinophil# 0.27 X10^3/uL; Hematocrit 45.9 % (40-54); Hemoglobin 15.3 g/dL (13.0-16.5); Lymphocyte # 2.18 X10^3/ul (0.83-4.51); Lymphocyte % 32.5 % (19-41); Mean Corp Hgb Conc 33.3 g/dL (32-36); Mean Corpuscular Hgb 31.9 pg (27.0-32.0); Mean Corpuscular Volume 95.8 fL (80-94); Mean Platelet Vol. 9.1 fl (6.2-12.0); Monocyte# 0.46 X10^3/uL; Monocyte% 6.9 % (0-10); NRBC Flagged by Analyzer 0 % (0-5); Neutrophil # 3.69 X10^3/uL (2.7-7.7); Neutrophil % 55.1 % (47-70); Platelet Count 330 K/mm3 (150-450); RBC Distribution Width CV 12.9 % (11.6-14.6); RBC Distribution Width SD 46.1 fl (35.1-43.9); Red Blood Count 4.79 M/mm3 (4.6-6.2); White Blood Count 6.7 K/mm3 (4.4-11.0)
[2023-09-08 07:44] LABS: Anion Gap 5 (5-15); BUN 13 mg/dL (7-18); BUN/Creat Ratio 18.5 RATIO (10-20); Calcium,Total 9.5 mg/dL (8.5-10.1); Chloride 106 mmol/L (98-107); Cholesterol 162 mg/dL (200); EST Glomerular Filtration Rate 118 mL/min (>60); Est Glom Filt Rate - Afr Amer 143 mL/min (>60); Estimated Creatinine Clearance 84.31 ml/min; Glucose 98 mg/dL (74-106); High Density Lipoprotein 56 mg/dL; Potassium 3.9 mmol/L (3.5-5.1); Sodium Level 136 mmol/L (136-145); Triglycerides 97 mg/dL; Very Low Density Lipoprotein 19 mg/dL (5-40)
--- NOTE | 2023-09-08 08:24 | PCM.PN.CARD ---
Subjective Subjective Patient seen and evaluated. Underwent cardiac catheterization today. Objective Data Vital Signs: Vital Signs Temp Pulse Resp BP Pulse Ox O2 Del Method 97.6 F L 70 15 148/81 H 96 Room Air 09/08/23 06:00 09/08/23 06:00 09/08/23 06:00 09/08/23 06:00 09/08/23 06:00 09/08/23 06:00 Oxygen Delivery Method Room Air Weight: 167 lb 5.294 oz Body Mass Index (BMI) 25.4 Intake & Output: Intake and Output for Last 24 Hours 09/06/23 09/07/23 09/08/23 23:59 23:59 23:59 Intake Total 55.65 / 295.65 362.97 / 362.97 Balance 55.65 / 295.65 362.97 / 362.97 Lab / Micro Data 09/08/23 06:48 09/08/23 06:48 Labs: Laboratory Results - last 24 hr 09/07/23 11:20: WBC 6.5, RBC 4.86, Hgb 15.4, Hct 46.6, MCV 95.9 H, MCH 31.7, MCHC 33.0, RDW Std Deviation 46.5 H, RDW Coeff of Monica 13.0, Plt Count 353, MPV 9.2, Immature Gran % (Auto) 0.200, Neut % (Auto) 61.0, Lymph % (Auto) 28.3, [place] % (Auto) 7.5, Eos % (Auto) 2.1, Baso % (Auto) 0.9, Absolute Neuts (auto) 4.0, Absolute Lymphs (auto) 1.85, Nucleated RBC % 0, PT 13.2, INR 1.0, APTT 29.6, Sodium 136, Potassium 4.1, Chloride 104, Carbon Dioxide 28.0, Anion Gap 4 L, BUN 14, Creatinine 0.88, Estim Creat Clear Calc 76.65, Est GFR (MDRD) Af Amer 110, Est GFR (MDRD) Non-Af 91, BUN/Creatinine Ratio 15.8, Glucose 114 H, Calcium 9.3, Troponin I High Sens 369 H* 09/07/23 14:10: Troponin I High Sens 536 H* 09/07/23 17:24: Troponin I High Sens 513 H* 09/07/23 18:24: APTT 47.7 H 09/08/23 00:56: APTT 53.1 H 09/08/23 06:48: WBC 6.7, RBC 4.79, Hgb 15.3, Hct 45.9, MCV 95.8 H, MCH 31.9, MCHC 33.3, RDW Std Deviation 46.1 H, RDW Coeff of Monica 12.9, Plt Count 330, MPV 9.1, Immature Gran % (Auto) 0.300, Neut % (Auto) 55.1, Lymph % (Auto) 32.5, [place] % (Auto) 6.9, Eos % (Auto) 4.0, Baso % (Auto) 1.2 H, Absolute Neuts (auto) 3.7, Absolute Lymphs (auto) 2.18, Nucleated RBC % 0, APTT 64.0 H, Sodium 136, Potassium 3.9, Chloride 106, Carbon Dioxide 25.0, Anion Gap 5, BUN 13, Creatinine 0.70, Estim Creat Clear Calc 84.31, Est GFR (MDRD) Af Amer 143, Est GFR (MDRD) Non-Af 118, BUN/Creatinine Ratio 18.5, Glucose 98, Calcium 9.5, Triglycerides 97, Cholesterol 162, LDL Cholesterol 87, VLDL Cholesterol 19, HDL Cholesterol 56 Cardiology Labs/Tests 09/07/23 11:20: WBC 6.5, RBC 4.86, Hgb 15.4, Hct 46.6, MCV 95.9 H, MCH 31.7, MCHC 33.0, Plt Count 353, MPV 9.2, Immature Gran % (Auto) 0.200, Neut % (Auto) 61.0, Lymph % (Auto) 28.3, [place] % (Auto) 7.5, Eos % (Auto) 2.1, Baso % (Auto) 0.9, Absolute Neuts (auto) 4.0, Nucleated RBC % 0, PT 13.2, INR 1.0, APTT 29.6, Sodium 136, Potassium 4.1, Chloride 104, Carbon Dioxide 28.0, Anion Gap 4 L, BUN 14, Creatinine 0.88, Est GFR (MDRD) Af Amer 110, Est GFR (MDRD) Non-Af 91, BUN/Creatinine Ratio 15.8, Glucose 114 H, Calcium 9.3 09/07/23 18:24: APTT 47.7 H 09/08/23 00:56: APTT 53.1 H 09/08/23 06:48: WBC 6.7, RBC 4.79, Hgb 15.3, Hct 45.9, MCV 95.8 H, MCH 31.9, MCHC 33.3, Plt Count 330, MPV 9.1, Immature Gran % (Auto) 0.300, Neut % (Auto) 55.1, Lymph % (Auto) 32.5, [place] % (Auto) 6.9, Eos % (Auto) 4.0, Baso % (Auto) 1.2 H, Absolute Neuts (auto) 3.7, Nucleated RBC % 0, APTT 64.0 H, Sodium 136, Potassium 3.9, Chloride 106, Carbon Dioxide 25.0, Anion Gap 5, BUN 13, Creatinine 0.70, Est GFR (MDRD) Af Amer 143, Est GFR (MDRD) Non-Af 118, BUN/Creatinine Ratio 18.5, Glucose 98, Calcium 9.5, Triglycerides 97, Cholesterol 162, LDL Cholesterol 87, VLDL Cholesterol 19, HDL Cholesterol 56 Rhythm: EKG: ECHO: Stress Test: Cardiac Cath: PCI: CT Surgery: Holter monitor: EPS: PPM: CXR: Chest CT Scan: Radiography Diagnostic Testing: Radiology Impression Chest X-Ray 09/07/23 11:40 IMPRESSION: Normal x-ray examination of the chest. Electronically Signed: Anup Navarro MD at 12:15 EDT , Echocardiogram 09/07/23 14:20 Interpretation Summary Normal LV size. Left ventricular systolic function is lower limits of normal. Mild concentric left ventricular hypertrophy. Stage 1 diastolic dysfunction. Bileaflet diffuse mitral valve thickening. Contrast injection was performed. Ordering Physician: Eleanor Rodriguez Performed By: Bran Hutchinson RCS Physical Exam Const alert, oriented x3 and no apparent distress General Appearance: cooperative HEENT hearing grossly normal bilaterally Head and Scalp: atraumatic Eyes EOMs intact bilaterally Neck General: normal visual inspection Chest inspection of chest normal and palpation of chest normal Resp normal respiratory effort Auscultation: clear to auscultation bilaterally Cardio regular rate, regular rhythm, S1 normal heart sound and S2 normal heart sound Jugular Venous Distention: JVD GI normal to inspection, nondistended, normoactive bowel sounds Extremity normal capillary refill and no pedal edema Peripheral Pulses: Yes pulses 2+ throughout and femoral pulses present Skin no rashes or lesions noted Neuro oriented x3 and CN's II-XII intact bilaterally Psych Appearance: grossly normal and appropriate Assessment & Plan Assessment/Plan (1) NSTEMI, initial episode of care: PLAN: He presents with chest discomfort and a non-ST elevation myocardial infarction. He underwent cardiac catheterization today which demonstrated normal left main coronary artery Left anterior descending artery with high-grade 95% proximal stenosis: Left circumflex artery with ostial 99% stenosis. Right coronary artery which is dominant with serial 90% stenotic lesions and right to left collaterals. Ejection fraction is noted to be reduced at 35%. Would recommend transfer to a tertiary care facility for coronary artery bypass surgery. (2) Elevated blood pressure reading: PLAN: He does have elevated blood pressure without a previous reading of hypertension. We will start him on a beta-beverly as well as CORNELIA inhibitor obtain an echocardiogram to look at his wall thickness and assess for duration of hypertension. Depending on the findings further recommendations will be made. Thank you for allowing me to participate in the care of your patient. Please don't hesitate to call if any issues arise.
--- NOTE | 2023-09-08 08:40 | CASEMGMT ---
Tertiary facilities in-network with patient's insurance: [facility], [facility], , Makayla, [facility], Maritza Kurtz, [facility], Antolin Gong
--- NOTE | 2023-09-08 08:42 | CL.D_ITS ---
Patient Name: WILFRIDO SPRING Study Date: 09/08/2023 Performing: Mihir Gao MD Ht: 68 inches 172.72 cm : 1955 Wt: 167.33 lbs 75.9 kg Age: 67 Gender: male BSA: 1.89 PROCEDURE(S) PERFORMED DC01-(44338)LHC/COR/LV CLINICAL PROFILE AND INDICATIONS Indications: Suspected CAD Heart Failure: None Stress/Imaging Stress/Image Study Performed: No CAD Presentations: Unstable angina. CONCLUSIONS Severe triple-vessel disease with reduced left ventricular systolic function. RECOMMENDATIONS Surgery consult for coronary revascularization DESCRIPTION OF PROCEDURE The patient arrived to the procedure lab. The risks and benefits of the procedure as well as a full description of our services here and current unavailability of surgical backup were fully explained to the patient and/or their significant other prior to the catheterization. The Timeout was completed, verifying the correct patient and procedure. The patient's procedural site was prepped and draped in the usual fashion. Local anesthetic was given subcutaneously to right radial region with Lidocaine 2%. Using a modified Seldinger technique, arterial access was obtained via the right radial artery, a 6Fr sheath was inserted. Right Coronary Artery selective angiography was then performed in multiple views using a 5 Fr. 4.0 Commerce catheter. Left Coronary Artery selective angiography was performed in multiple views using a 5 Fr. 4.0 Commerce catheter. Left Ventriculography was performed in MARTÍNEZ projection using a 5 Fr. Pigtail catheter. LV to AO pullback pressures were then recorded.The arterial sheath was pulled and a TR Band was applied for hemostasis CORONARY ANGIOGRAPHY DOMINANCE: Right Dominant LEFT HEART ASSESSMENT Left Ventricular Ejection Fraction: by LV Gram 40 % Global Hypokinesis - Moderate Depressed Left Ventricular systolic function LEFT MAIN: Mild calcification, Angiographically normal LEFT ANTERIOR DESCENDING ARTERY: Mild calcification, Left anterior descending artery is a medium size vessel with a proximal 90% stenosis involving the ostium of the first diagonal vessel with a 70% stenosis the rest of the vessel appears to be small. CIRCUMFLEX ARTERY: Nondominant vessel with an ostial 99% stenosis in the mid 50 to 60% stenosis prior to the bifurcation of the obtuse marginal branch and AV groove branch. RIGHT CORONARY ARTERY: Dominant vessel severely diseased mid 50% stenosis and then bifurcates to the posterior lateral artery with serial 95, 90, 80% stenosis and a diffusely diseased posterior descending artery. COLLATERAL FLOW: Collateral flow from Right to Left COMPLICATIONS No Complications PROCEDURE MEDICATIONS Fentanyl 50 mcg IV Versed 1 mg IV Oxygen: 2 L/min via nasal cannula Heparin given IA 09/08/2023 07:49:53 Verapamil 2.5mg, Ntg 100mcgs, 3000 units of Heparin given IA 09/08/2023 07:49:53 SUMMARY OF HEMODYNAMIC DATA Time AIR REST Art 162/72 (97) 08:19:59 ECG 07:35:22 AO 139/76 (104) SA 08:12:07 LV 155/9, 19 08:19:07 LV 159/14, 22 08:19:15 LV 160/13, 26 08:19:57 LVp 159/14, 27 08:20:01 AIR REST 08:31:01 Signed By Mihir Gao MD On 09/14/2023 10:22:30 Signed By Mihir Gao MD On 09/08/2023 08:41:10 Mihir Gao MD
[2023-09-08] MEDS: 0.9% Normal Saline (1000mL) 1,000 ML 15 ML IV (08:52)
[2023-09-08] MEDS: Pyridoxine HCl 50 MG Tablet 25 MG PO (08:53)
[2023-09-08] MEDS: Zinc Sulfate 50 mg zinc (220 mg) ORAL capsule PO (08:53)
[2023-09-08] MEDS: Pantoprazole Sodium 20 MG Tablet PO (08:53)
[2023-09-08] MEDS: Folic Acid 1 MG Tablet PO (08:54)
[2023-09-08] MEDS: Cholecalciferol (VIT D3) 25 MCG TABLET (1,000 UNITS) PO (08:54)
--- NOTE | 2023-09-08 11:43 | PCM.PROGNOTE ---
Subjective Subjective Patient seen and examined. He had no active complaints. Chest pain has not recurred. He had cardiac cath today which showed severe triple-vessel disease. Plan is for transfer to surgery facility for CABG. Patient requested to go to [facility]. He has remained hemodynamically stable. Objective Data Objective Data Vital Signs: Vital Signs Temp Pulse Resp BP Pulse Ox O2 Del Method 97.7 F L 81 16 124/78 H 99 Room Air 09/08/23 08:45 09/08/23 11:31 09/08/23 11:04 09/08/23 11:31 09/08/23 10:00 09/08/23 10:00 Oxygen Delivery Method Room Air Weight: 167 lb 5.294 oz Body Mass Index (BMI) 25.4 Intake & Output: Intake and Output for Last 24 Hours 09/06/23 09/07/23 09/08/23 23:59 23:59 23:59 Intake Total 55.65 / 295.65 362.97 / 362.97 Balance 55.65 / 295.65 362.97 / 362.97 Lab / Micro Data 09/08/23 06:48 09/08/23 06:48 Labs: Laboratory Results - last 24 hr 09/07/23 11:20: WBC 6.5, RBC 4.86, Hgb 15.4, Hct 46.6, MCV 95.9 H, MCH 31.7, MCHC 33.0, RDW Std Deviation 46.5 H, RDW Coeff of Monica 13.0, Plt Count 353, MPV 9.2, Immature Gran % (Auto) 0.200, Neut % (Auto) 61.0, Lymph % (Auto) 28.3, [place] % (Auto) 7.5, Eos % (Auto) 2.1, Baso % (Auto) 0.9, Absolute Neuts (auto) 4.0, Absolute Lymphs (auto) 1.85, Nucleated RBC % 0, PT 13.2, INR 1.0, APTT 29.6, Sodium 136, Potassium 4.1, Chloride 104, Carbon Dioxide 28.0, Anion Gap 4 L, BUN 14, Creatinine 0.88, Estim Creat Clear Calc 76.65, Est GFR (MDRD) Af Amer 110, Est GFR (MDRD) Non-Af 91, BUN/Creatinine Ratio 15.8, Glucose 114 H, Calcium 9.3, Troponin I High Sens 369 H* 09/07/23 14:10: Troponin I High Sens 536 H* 09/07/23 17:24: Troponin I High Sens 513 H* 09/07/23 18:24: APTT 47.7 H 09/08/23 00:56: APTT 53.1 H 09/08/23 06:48: WBC 6.7, RBC 4.79, Hgb 15.3, Hct 45.9, MCV 95.8 H, MCH 31.9, MCHC 33.3, RDW Std Deviation 46.1 H, RDW Coeff of Monica 12.9, Plt Count 330, MPV 9.1, Immature Gran % (Auto) 0.300, Neut % (Auto) 55.1, Lymph % (Auto) 32.5, [place] % (Auto) 6.9, Eos % (Auto) 4.0, Baso % (Auto) 1.2 H, Absolute Neuts (auto) 3.7, Absolute Lymphs (auto) 2.18, Nucleated RBC % 0, APTT 64.0 H, Sodium 136, Potassium 3.9, Chloride 106, Carbon Dioxide 25.0, Anion Gap 5, BUN 13, Creatinine 0.70, Estim Creat Clear Calc 84.31, Est GFR (MDRD) Af Amer 143, Est GFR (MDRD) Non-Af 118, BUN/Creatinine Ratio 18.5, Glucose 98, Calcium 9.5, Triglycerides 97, Cholesterol 162, LDL Cholesterol 87, VLDL Cholesterol 19, HDL Cholesterol 56 Radiography Diagnostic Testing: Radiology Impression Chest X-Ray 09/07/23 11:40 IMPRESSION: Normal x-ray examination of the chest. Electronically Signed: Anup Navarro MD at 12:15 EDT , Echocardiogram 09/07/23 14:20 Interpretation Summary Normal LV size. Left ventricular systolic function is lower limits of normal. Mild concentric left ventricular hypertrophy. Stage 1 diastolic dysfunction. Bileaflet diffuse mitral valve thickening. Contrast injection was performed. Ordering Physician: Eleanor Rodriguez Performed By: Bran Hutchinson RCS Physical Exam Const alert, oriented x3 and no apparent distress General Appearance: cooperative HEENT normocephalic, head/scalp atraumatic, hearing grossly normal bilaterally and moist oral mucous membranes Eyes PERRL, EOMs intact bilaterally and conjunctivae normal Neck no lymphadenopathy and supple Resp normal respiratory effort, normal air movement, no retractions, no use of accessory muscles and clear to auscultation bilaterally Cardio regular rate, regular rhythm, S1 normal heart sound, S2 normal heart sound and no murmurs GI normal to inspection, nondistended, normoactive bowel sounds, soft to palpation and non-tender Extremity normal to inspection, full ROM, normal capillary refill and no clubbing, cyanosis or edema Skin General Skin Exam: no breakdown Neuro oriented x3, CN's II-XII intact bilaterally, moves all extremities and no focal motor deficits Sensorium / Orientation: awake and alert Motor Exam: strength 5/5 throughout and general weakness Psych thought process normal, cooperative and affect normal Appearance: appropriate Assessment & Plan Assessment/Plan (1) NSTEMI, initial episode of care: PLAN: Plan #Nonstemi admitted with a complaint of chest pain which worsened with exertion and relieved by rest. initial troponin was 369. EKG showed no acute ST changes cycle troponins. PO aspirin 81mg daily, high intensity statin Cardiology on board. He had cardiac cath today which showed severe triple-vessel disease. 2D echo showed normal left ventricular size with mild concentric left ventricular hypertrophy and stage I diastolic dysfunction with mild global hypokinesis of the left ventricle. EF per echo was 51% by prior cardiac catheter was 40%. Patient awaiting transfer to [facility] for evaluation for CABG. He has been accepted pending bed availability. Lipid panel showed cholesterol levels within normal limits but he is on statin. A1c pending. #Hyperlipidemia: on high intensity statin. #Elevated blood pressure Blood pressure is now improved and is 124/78. Systolic has ranged between the 170s to the 110s since admission. He is not a known hypertensive. Will start on low-dose beta-beverly. DVT prophylaxis: Lovenox CODE STATUS: Full code Disposition: Awaiting transfer to [facility] pending bed availability. Charges/Coding Visit Charges Inpatient E&M: 16176 Subs Hosp L2
[2023-09-08 14:41] LABS: Hemoglobin A1c 5.5 % (3.8-5.6)
--- NOTE | 2023-09-08 15:19 | CHAPLAIN ---
Type of Pastoral Visit _x__ Initial Visit ___ Follow-up Visit ___ On-call Visit ___ General Patient Visit ___ Spiritual Assessment ___ Family Conference ___ Bereavement ___ Rapid Response ___ Code Blue ___ Other (describe below) Pastoral Care Referral From _x__ Patient ___ Family ___ Nurse ___ Physician ___ Survey Engineer ___ Data Communications Engineer ___ Other (describe below) Sacrament/Intervention _x__ Active listening ___ Anointing ___ Evangelical ___ Bereavement ___ Communion _x__ Merle exploration ___ ___ Life review _x__ Prayer ___ Reconciliation ___ Sacrament of Sick ___ Supportive presence ___ Wedding ___ Other (describe below) Pastoral Comments patient and his spouse and brother are in the room; pt reports feeling somewhat better now after it has settled in about the next heart surgery needed instead of a stent; pt will be transferred to [facility] which is more than what was expected; pt says this was unexpected shock and spouse says that she admittedly is anxious until it's over and done; both welcome a prayer for support and express merle in God and importance of prayers of people; 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
[2023-09-08] MEDS: Atorvastatin Calcium 20 MG Tablet PO (21:40)
[2023-09-09] VITALS (7 sets, daily range): BP systolic 129–143; BP diastolic 66–81; PULSE 76–92; RESP 15–17; TEMP 36.5–37.1; O2SAT 94–97
[2023-09-09 06:26] LABS: Absolute Lymphocyte Count 2.04 X10^3/uL (0.83-4.51); Absolute Neutrophil Count 4.9 X10^3/uL (2.0-7.7); Basophil# 0.05 X10^3/uL; Basophil% 0.6 % (0-1); Eosinophil# 0.22 X10^3/uL; Eosinophils% 2.8 % (0-5); Hematocrit 47.2 % (40-54); Hemoglobin 15.8 g/dL (13.0-16.5); Lymphocyte # 2.04 X10^3/ul (0.83-4.51); Lymphocyte % 25.8 % (19-41); Mean Corp Hgb Conc 33.5 g/dL (32-36); Mean Corpuscular Volume 95.7 fL (80-94); Mean Platelet Vol. 9.3 fl (6.2-12.0); Monocyte# 0.68 X10^3/uL; Monocyte% 8.6 % (0-10); NRBC Flagged by Analyzer 0 % (0-5); Neutrophil # 4.91 X10^3/uL (2.7-7.7); Neutrophil % 61.9 % (47-70); Platelet Count 324 K/mm3 (150-450); RBC Distribution Width CV 12.9 % (11.6-14.6); RBC Distribution Width SD 45.4 fl (35.1-43.9); Red Blood Count 4.93 M/mm3 (4.6-6.2); White Blood Count 7.9 K/mm3 (4.4-11.0)
[2023-09-09 06:38] LABS: Anion Gap 6 (5-15); BUN 20 mg/dL (7-18); BUN/Creat Ratio 25.2 RATIO (10-20); Calcium,Total 9.5 mg/dL (8.5-10.1); Chloride 103 mmol/L (98-107); Creatinine, Serum 0.79 mg/dL (0.70-1.30); EST Glomerular Filtration Rate 103 mL/min (>60); Est Glom Filt Rate - Afr Amer 124 mL/min (>60); Estimated Creatinine Clearance 84.31 ml/min; Glucose 97 mg/dL (74-106); Potassium 3.7 mmol/L (3.5-5.1); Sodium Level 134 mmol/L (136-145)
[2023-09-09] MEDS: Pyridoxine HCl 50 MG Tablet 25 MG PO (08:38)
[2023-09-09] MEDS: Folic Acid 1 MG Tablet PO (08:38)
[2023-09-09] MEDS: Cholecalciferol (VIT D3) 25 MCG TABLET (1,000 UNITS) PO (08:38)
[2023-09-09] MEDS: Pantoprazole Sodium 20 MG Tablet PO (08:38)
[2023-09-09] MEDS: Zinc Sulfate 50 mg zinc (220 mg) ORAL capsule PO (08:38)
--- NOTE | 2023-09-09 11:02 | PN_ITS ---
Subjective Subjective Patient seen and examined. He had no active complaints. and his sister were by his bedside. Review of systems otherwise negative. He is awaiting transfer to [facility]. He has remained hemodynamically stable. Objective Data Objective Data Vital Signs: Vital Signs Temp Pulse Resp BP Pulse Ox O2 Del Method 98.7 F 83 16 138/75 H 95 Room Air 09/09/23 08:34 09/09/23 08:34 09/09/23 08:34 09/09/23 08:34 09/09/23 08:34 09/09/23 08:34 Oxygen Delivery Method Room Air Weight: 167 lb 5.294 oz Body Mass Index (BMI) 25.4 Intake & Output: Intake and Output for Last 24 Hours 09/07/23 09/08/23 09/09/23 23:59 23:59 23:59 Intake Total 55.65 / 295.65 1360.47 / 1720.47 480 / 480 Output Total 0 / 0 Balance 55.65 / 295.65 1360.47 / 1720.47 480 / 480 Lab / Micro Data 09/09/23 05:14 09/09/23 05:14 Labs: Laboratory Results - last 24 hr 09/08/23 11:20: Hemoglobin A1c 5.5 09/09/23 05:14: WBC 7.9, RBC 4.93, Hgb 15.8, Hct 47.2, MCV 95.7 H, MCH 32.0, MCHC 33.5, RDW Std Deviation 45.4 H, RDW Coeff of Monica 12.9, Plt Count 324, MPV 9.3, Immature Gran % (Auto) 0.300, Neut % (Auto) 61.9, Lymph % (Auto) 25.8, [place] % (Auto) 8.6, Eos % (Auto) 2.8, Baso % (Auto) 0.6, Absolute Neuts (auto) 4.9, Absolute Lymphs (auto) 2.04, Nucleated RBC % 0, Sodium 134 L, Potassium 3.7, Chloride 103, Carbon Dioxide 25.0, Anion Gap 6, BUN 20 H, Creatinine 0.79, Estim Creat Clear Calc 84.31, Est GFR (MDRD) Af Amer 124, Est GFR (MDRD) Non-Af 103, B UN/Creatinine Ratio 25.2 H, Glucose 97, Calcium 9.5 Physical Exam Const alert, oriented x3 and no apparent distress General Appearance: cooperative HEENT normocephalic, head/scalp atraumatic, hearing grossly normal bilaterally and moist oral mucous membranes Eyes PERRL, EOMs intact bilaterally and conjunctivae normal Neck no lymphadenopathy and supple Resp normal respiratory effort, normal air movement, no retractions, no use of accessory muscles and clear to auscultation bilaterally Cardio regular rate, regular rhythm, S1 normal heart sound, S2 normal heart sound and no murmurs GI normal to inspection, nondistended, normoactive bowel sounds, soft to palpation and non-tender Extremity normal to inspection, full ROM, normal capillary refill and no clubbing, cyanosis or edema General Extremity: no tenderness to palpation of joints or extremities Skin General Skin Exam: no breakdown Neuro oriented x3, CN's II-XII intact bilaterally, moves all extremities and no focal motor deficits Sensorium / Orientation: awake and alert Motor Exam: strength 5/5 throughout and general weakness Psych thought process normal, cooperative and affect normal Appearance: appropriate Assessment & Plan Assessment/Plan (1) NSTEMI, initial episode of care: PLAN: Plan #Nonstemi * admitted with a complaint of chest pain which worsened with exertion and relieved by rest. * initial troponin was 369. EKG showed no acute ST changes * cycle troponins. * PO aspirin 81mg daily, high intensity statin * Cardiology on board. He had cardiac cath today which showed severe triple- vessel disease. * 2D echo showed normal left ventricular size with mild concentric left ventricular hypertrophy and stage I diastolic dysfunction with mild global hypokinesis of the left ventricle. EF per echo was 51% by prior cardiac catheter was 40%. * Patient awaiting transfer to [facility] for evaluation for CABG. He has been accepted pending bed availability. * Lipid panel showed cholesterol levels within normal limits but he is on statin. A1c is 5.5. * #Hyperlipidemia: on high intensity statin. #Elevated blood pressure * BP has been in the 130s systolic. * Start on p.o. metoprolol 12.5 mg twice daily. * DVT prophylaxis: Lovenox CODE STATUS: Full code * Disposition: Awaiting transfer to [facility] pending bed availability. Charges/Coding Visit Charges Inpatient E&M: 56238 Subs Hosp L2
[2023-09-09] MEDS: Enoxaparin 40 MG/0.4 ML Syringe SC (11:18)
[2023-09-09] MEDS: Metoprolol Tartrate 25 MG Tablet 12.5 MG PO ×2 (13:37→21:20)
[2023-09-09] MEDS: 0.9% Saline Lock 10 ML Syringe IV (21:20)
[2023-09-09] MEDS: Atorvastatin Calcium 20 MG Tablet PO (21:20)
--- NOTE | 2023-09-10 03:03 | EKG12_ITS ---
Test Reason : CHEST PAIN Blood Pressure : / mmHG Vent. Rate : 072 BPM Atrial Rate : 072 BPM P-R Int : 136 ms QRS Dur : 104 ms QT Int : 414 ms P-R-T Axes : 050 -25 030 degrees QTc Int : 453 ms Normal sinus rhythm Normal ECG When compared with ECG of 08-SEP-2023 05:43, No significant change was found Confirmed by Ji Dominguez ([id number]), editor index ALEJANDRINA DE ([id number]) on 09/10/2023 9:46:43 AM Referred By: JOY Confirmed By:Ji Dominguez
[2023-09-10 03:06] VITALS: BP 141/76; PULSE 69; RESP 18; TEMP 36.7; O2SAT 97
[2023-09-10 06:40] LABS: Absolute Lymphocyte Count 1.68 X10^3/uL (0.83-4.51); Absolute Neutrophil Count 4.7 X10^3/uL (2.0-7.7); Basophil# 0.04 X10^3/uL; Basophil% 0.5 % (0-1); Eosinophil# 0.24 X10^3/uL; Eosinophils% 3.2 % (0-5); Hematocrit 45.8 % (40-54); Hemoglobin 15.5 g/dL (13.0-16.5); Lymphocyte # 1.68 X10^3/ul (0.83-4.51); Lymphocyte % 22.7 % (19-41); Mean Corp Hgb Conc 33.8 g/dL (32-36); Mean Corpuscular Hgb 32.3 pg (27.0-32.0); Mean Corpuscular Volume 95.4 fL (80-94); Mean Platelet Vol. 9.3 fl (6.2-12.0); Monocyte# 0.69 X10^3/uL; Monocyte% 9.3 % (0-10); NRBC Flagged by Analyzer 0 % (0-5); Neutrophil # 4.73 X10^3/uL (2.7-7.7); Platelet Count 336 K/mm3 (150-450); RBC Distribution Width CV 12.8 % (11.6-14.6); RBC Distribution Width SD 45.3 fl (35.1-43.9); White Blood Count 7.4 K/mm3 (4.4-11.0)
[2023-09-10 07:14] LABS: Anion Gap 7 (5-15); BUN 18 mg/dL (7-18); BUN/Creat Ratio 23.9 RATIO (10-20); Calcium,Total 9.6 mg/dL (8.5-10.1); Chloride 104 mmol/L (98-107); Creatinine, Serum 0.75 mg/dL (0.70-1.30); EST Glomerular Filtration Rate 109 mL/min (>60); Est Glom Filt Rate - Afr Amer 132 mL/min (>60); Estimated Creatinine Clearance 84.31 ml/min; Glucose 100 mg/dL (74-106); Potassium 3.9 mmol/L (3.5-5.1); Sodium Level 137 mmol/L (136-145)
[2023-09-10 08:16] VITALS: O2SAT 96
--- NOTE | 2023-09-10 08:29 | NURSING ---
I spoke to [facility] transfer line and they stated the pt is on the list however they do not have a bed at this time.
[2023-09-10 08:41] VITALS: BP 129/66; PULSE 77; RESP 12; TEMP 36.6; O2SAT 94
[2023-09-10 08:44] VITALS: PULSE 77
[2023-09-10] MEDS: Cholecalciferol (VIT D3) 25 MCG TABLET (1,000 UNITS) PO (08:44)
[2023-09-10] MEDS: Zinc Sulfate 50 mg zinc (220 mg) ORAL capsule PO (08:44)
[2023-09-10] MEDS: Metoprolol Tartrate 25 MG Tablet 12.5 MG PO (08:44)
[2023-09-10] MEDS: Pyridoxine HCl 50 MG Tablet 25 MG PO (08:45)
[2023-09-10] MEDS: Enoxaparin 40 MG/0.4 ML Syringe SC (08:45)
[2023-09-10] MEDS: Pantoprazole Sodium 20 MG Tablet PO (08:45)
[2023-09-10] MEDS: Folic Acid 1 MG Tablet PO (08:45)
--- NOTE | 2023-09-10 09:16 | PCM.PROGNOTE ---
Subjective Subjective Patient seen and examined. His was by his bedside. He was eating breakfast. He complained of chest pain overnight and also this morning. He has no other complaints. Review of systems otherwise negative. He still awaiting transfer pending bed availability at [facility]. He has remained hemodynamically stable. Objective Data Objective Data Vital Signs: Vital Signs Temp Pulse Resp BP Pulse Ox O2 Del Method 97.9 F 77 12 129/66 H 94 Room Air 09/10/23 08:41 09/10/23 08:44 09/10/23 08:41 09/10/23 08:41 09/10/23 08:41 09/10/23 08:41 Oxygen Delivery Method Room Air Weight: 167 lb 5.294 oz Body Mass Index (BMI) 25.4 Intake & Output: Intake and Output for Last 24 Hours 09/08/23 09/09/23 09/10/23 23:59 23:59 23:59 Intake Total 1360.47 / 1720.47 480 / 480 Output Total 0 / 0 Balance 1360.47 / 1720.47 480 / 480 Lab / Micro Data 09/10/23 05:21 09/10/23 05:21 Labs: Laboratory Results - last 24 hr 09/10/23 05:21: WBC 7.4, RBC 4.80, Hgb 15.5, Hct 45.8, MCV 95.4 H, MCH 32.3 H, MCHC 33.8, RDW Std Deviation 45.3 H, RDW Coeff of Monica 12.8, Plt Count 336, MPV 9.3, Immature Gran % (Auto) 0.300, Neut % (Auto) 64.0, Lymph % (Auto) 22.7, [place] % (Auto) 9.3, Eos % (Auto) 3.2, Baso % (Auto) 0.5, Absolute Neuts (auto) 4.7, Absolute Lymphs (auto) 1.68, Nucleated RBC % 0, Sodium 137, Potassium 3.9, Chloride 104, Carbon Dioxide 26.0, Anion Gap 7, BUN 18, Creatinine 0.75, Estim Creat Clear Calc 84.31, Est GFR (MDRD) Af Amer 132, Est GFR (MDRD) Non-Af 109, BUN/Creatinine Ratio 23.9 H, Glucose 100, Calcium 9.6 Physical Exam Const alert, oriented x3 and no apparent distress General Appearance: cooperative and well developed HEENT normocephalic, head/scalp atraumatic, hearing grossly normal bilaterally and moist oral mucous membranes Eyes PERRL, EOMs intact bilaterally and conjunctivae normal Neck no lymphadenopathy and supple Resp normal respiratory effort, normal air movement, no retractions, no use of accessory muscles and clear to auscultation bilaterally Cardio regular rate, regular rhythm, S1 normal heart sound, S2 normal heart sound and no murmurs GI normal to inspection, nondistended, normoactive bowel sounds, soft to palpation and non-tender Extremity normal to inspection, full ROM, normal capillary refill and no clubbing, cyanosis or edema General Extremity: no tenderness to palpation of joints or extremities Skin General Skin Exam: no breakdown Neuro oriented x3, CN's II-XII intact bilaterally, moves all extremities and no focal motor deficits Sensorium / Orientation: awake and alert Motor Exam: strength 5/5 throughout and general weakness Psych thought process normal, cooperative and affect normal Appearance: appropriate Assessment & Plan Assessment/Plan (1) NSTEMI, initial episode of care: PLAN: Plan #Nonstemi admitted with a complaint of chest pain which worsened with exertion and relieved by rest. initial troponin was 369. EKG showed no acute ST changes cycle troponins. PO aspirin 81mg daily, high intensity statin Cardiology on board. He had cardiac cath today which showed severe triple-vessel disease. 2D echo showed normal left ventricular size with mild concentric left ventricular hypertrophy and stage I diastolic dysfunction with mild global hypokinesis of the left ventricle. EF per echo was 51% by prior cardiac catheter was 40%. Patient awaiting transfer to [facility] for evaluation for CABG. He has been accepted pending bed availability. Lipid panel showed cholesterol levels within normal limits but he is on statin. A1c is 5.5. patient complained of chest pain overnight and this morning, though it had resolved by the time I reviewed him this morning. patient and counseled about the need for imperative transfer for evaluation for CABG as he is still having chest pain. I counseled them that they might have to wait for several days before they get a bed at [facility] and offered them transfer again to [facility] where we have traditionally had much success with quick transfers for evaluation for CABG. Patient and insist that he still want to wait for transfer to [facility]. #Hyperlipidemia: on high intensity statin. #Elevated blood pressure BP has been in the 130s systolic. Start on p.o. metoprolol 12.5 mg twice daily. DVT prophylaxis: Lovenox CODE STATUS: Full code Disposition: Awaiting transfer to [facility] pending bed availability. Charges/Coding Visit Charges Inpatient E&M: 90287 Subs Hosp L2
--- NOTE | 2023-09-10 11:10 | CASEMGMT ---
Advance Directive Validation Received advance directive validation notice. Chart reviewed and noted patient answered upon admission that does not have a POAHC or Living Will. Patient also declined upon admission wanting further information. No further needs identified or requested at this time. -LATHA Zayas
--- NOTE | 2023-09-10 13:15 | NURSING ---
Report called to KAILASH Gracia RN. 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
[2023-09-10 13:24] VITALS: BP 152/69; PULSE 72; RESP 12; TEMP 36.6; O2SAT 97
--- NOTE | 2023-09-10 13:40 | PCM.DC.SUM ---
Providers Date of Admission: 09/07/23 Date of Discharge: 09/10/23 Primary Care Physician: Dr. Bernabe Zhang, Consultations 09/07/23 14:20 Consult: Cardiology Routine Consulting Provider: Mihir Gao Reason for Consult: nonstemi EMERGENT Consult: No MD Notified: Yes Date Notified: 09/07/23 Time Notified: 12:56 Method of Notification: Text Reason For Visit: NONSTEMI Diagnosis Discharge Diagnosis (1) NSTEMI, initial episode of care: Status: Acute Code(s): I21.4 - Non-ST elevation (NSTEMI) myocardial infarction Plan #Nonstemi admitted with a complaint of chest pain which worsened with exertion and relieved by rest. initial troponin was 369. EKG showed no acute ST changes cycle troponins. PO aspirin 81mg daily, high intensity statin Cardiology on board. He had cardiac cath today which showed severe triple-vessel disease. 2D echo showed normal left ventricular size with mild concentric left ventricular hypertrophy and stage I diastolic dysfunction with mild global hypokinesis of the left ventricle. EF per echo was 51% by prior cardiac catheter was 40%. Patient awaiting transfer to [facility] [place] for evaluation for CABG. He has been accepted pending bed availability. Lipid panel showed cholesterol levels within normal limits but he is on statin. A1c is 5.5. patient complained of chest pain overnight and this morning, though it had resolved by the time I reviewed him this morning. patient and counseled about the need for imperative transfer for evaluation for CABG as he is still having chest pain. I counseled them that they might have to wait for several days before they get a bed at [facility] and offered them transfer again to [facility] where we have traditionally had much success with quick transfers for evaluation for CABG. Patient and insist that he still want to wait for transfer to [facility]. #Hyperlipidemia: on high intensity statin. #Elevated blood pressure BP has been in the 130s systolic. Start on p.o. metoprolol 12.5 mg twice daily. DVT prophylaxis: Lovenox CODE STATUS: Full code Disposition: Awaiting transfer to [facility] [place] pending bed availability. Medications at Discharge Home Medications cholecalciferol (vitamin D3) 25 mcg (1,000 unit) capsule 25 mcg PO DAILY 09/07/23 folic acid 1 mg tablet 1 mg PO DAILY 09/07/23 omeprazole 20 mg capsule,delayed release 20 mg PO DAILY 09/07/23 pyridoxine (vitamin B6) 25 mg tablet 25 mg PO DAILY 09/07/23 rosuvastatin 10 mg tablet 10 mg PO QHS 09/07/23 saw palmetto 160 mg capsule 160 mg PO DAILY 09/07/23 zinc sulfate 50 mg zinc (220 mg) tablet 50 mg PO DAILY 09/07/23 Hospital Course Operations None Procedures 2-D Echocardiogram and Cardiac catheterization Summary of Care Provided Minutes Spent on Discharge: 55 Hospital Course: WILFRIDO SPRING, is a 67 M with a PMH of hyperlipidemia who presents via the ED on 09/07/2023 with complaint of chest pain which have been going on for about a month. Chest pain was initially noticed with exertion and It was relieved by rest. He denied any shortness of breath, palpitations, dizziness, nausea vomiting or any other symptoms. Chest pain did not radiate up his neck or down his arm. He did not think much of it but realized about the last week that the chest pain has become more frequent. It really worsened the day before admission when he was doing some painting in his house. Again the chest pain was worsened by exertion and relieved by rest. He was worried that there may be something going on with his heart so he decided to come into the ED. He has never had any heart attack and does not have any stents. He denies any history of smoking and states he uses alcohol occasionally. Review of systems otherwise negative. Vitals in the ED were blood pressure 164/88, pulse rate of 74, respirate rate of 15 and temp of 98.2 Fahrenheit. He was saturating at 98% on room air. CBC was unremarkable. BMP also unremarkable, and initial troponin was 369. EKG showed no acute ST changes and CXR showed no acute cardiopulmonary pathology. He was admitted to be managed for non-STEMI. Cardiology was consulted. He had 2D echo which showed normal biventricular size with mild concentric hypertrophy and stage I diastolic dysfunction with mild global hypokinesis of the left ventricle with EF of 51%. Cardiac cath showed severe triple-vessel disease with a EF of 40%. Patient was recommended to be transferred for cardiac cath. Patient and family's preference was [facility] [place]. He was transferred to [facility] [place] on 09/10/2023. Patient was seen and examined prior to discharge. He had no complaints. His was by his bedside. He did have some chest pain overnight and in the early hours of this morning. Review of systems otherwise negative. Physical Exam Const alert, oriented x3 and no apparent distress General Appearance: cooperative, comfortable, well kempt and well developed HEENT normocephalic, head/scalp atraumatic, hearing grossly normal bilaterally and moist oral mucous membranes Mouth: oral and palatal mucosa normal Eyes PERRL, EOMs intact bilaterally and conjunctivae normal Neck no lymphadenopathy, supple and no JVD Resp normal respiratory effort, normal air movement, no retractions, no use of accessory muscles and clear to auscultation bilaterally Cardio regular rate, regular rhythm, S1 normal heart sound, S2 normal heart sound and no murmurs GI normal to inspection, nondistended, normoactive bowel sounds, soft to palpation and non-tender Extremity normal to inspection, full ROM, normal capillary refill and no clubbing, cyanosis or edema General Extremity: no tenderness to palpation of joints or extremities Skin no rashes or lesions noted and no wounds General Skin Exam: no breakdown Neuro oriented x3, CN's II-XII intact bilaterally, moves all extremities and no focal motor deficits Sensorium / Orientation: awake and alert Motor Exam: strength 5/5 throughout and general weakness Psych thought process normal, cooperative and affect normal Appearance: appropriate Weight / BMI Weight Weight: 167 lb 5.294 oz Body Mass Index (BMI) 25.4 ABG / Lab / Microbiology Data 09/10/23 05:21 09/10/23 05:21 Laboratory: Laboratory Results - last 24 hr 09/10/23 05:21: WBC 7.4, RBC 4.80, Hgb 15.5, Hct 45.8, MCV 95.4 H, MCH 32.3 H, MCHC 33.8, RDW Std Deviation 45.3 H, RDW Coeff of Monica 12.8, Plt Count 336, MPV 9.3, Immature Gran % (Auto) 0.300, Neut % (Auto) 64.0, Lymph % (Auto) 22.7, Becker % (Auto) 9.3, Eos % (Auto) 3.2, Baso % (Auto) 0.5, Absolute Neuts (auto) 4.7, Absolute Lymphs (auto) 1.68, Nucleated RBC % 0, Sodium 137, Potassium 3.9, Chloride 104, Carbon Dioxide 26.0, Anion Gap 7, BUN 18, Creatinine 0.75, Estim Creat Clear Calc 84.31, Est GFR (MDRD) Af Amer 132, Est GFR (MDRD) Non-Af 109, BUN/Creatinine Ratio 23.9 H, Glucose 100, Calcium 9.6 D/C Instructions Discharge Diet: Low fat / Low cholesterol Meaningful Use Info Meaningful Use Meaningful Use Diagnoses (Choose all that apply): AMI AMI/Post PCI/Angioplasty Aspirin given w/in 24hrs of arrival?: Yes ASA at discharge?: No Reason ASA not ordered:: Allergy (Transferred to [facility].) Antiplatelet Therapy at Discharge:: No Reason Antiplatelet Therapy not ordered:: Transferred to [facility] Statins at discharge?: No Reason statins not ordered:: Allergy (Transferred to [facility] for CABG) Gibson/ARB at discharge?: No Reason Gibson/ARB not ordered:: Allergy (transferred for CABG) Beta Shirley at discharge?: No Reason Beta Shirley not ordered:: Allergy (transferred to [facility] for CABG) Done w/ Acute CA measure.: Yes Documented LVEF (%): 51 Ischemic Stroke Statin Dosing Therapy Reference: STATIN DOSE THERAPY REFERENCE: * Patients > 75 years receive moderate or high dose statin therapy. * Patients 75 years or YOUNGER should receive HIGH intensity statin dose unless contraindicated. You will be required to document reason for non-treatment if statin daily dose does not meet guidelines. HIGH DOSE STATIN THERAPY DAILY Atorvastatin > than or = to 40 mg Rosuvastatin > than or = to 20 mg Amlodipine + Atorvastatin > than or = to 2.5/40 mg Ezetimibe + Simvastatin 10/80 mg Simvastatin 80mg Discharge Plan Admission Admit Date/Time: 09/07/23 12:50 Primary Reason for Your Visit: nonstemi Attending Provider: Eleanor Rodriguez Primary Care Provider: Bernabe Zhang Consulting Providers: Mihir Gao Discharge Orders/Prescriptions Prescriptions: No Action omeprazole 20 mg capsule,delayed release(DR/EC) 20 mg PO DAILY rosuvastatin 10 mg tablet 10 mg PO QHS folic acid 1 mg tablet 1 mg PO DAILY saw palmetto 160 mg capsule 160 mg PO DAILY Rx Instructions: give with meal/snack pyridoxine (vitamin B6) 25 mg tablet 25 mg PO DAILY zinc sulfate 50 mg zinc (220 mg) tablet 50 mg PO DAILY cholecalciferol (vitamin D3) 25 mcg (1,000 unit) capsule 25 mcg PO DAILY Referrals / Follow Up: Bernabe Zhang DO [Primary Care Provider] - Disposition Disposition (needs filled in before D/C Order can be placed): Acute Care Hospital Charges/Coding Visit Charges Inpatient E&M: 63296 Disch Hosp >30min
== END 2023-09-10 16:03 | disposition short-term general hospital (02) | DRG 282 ==
LOC: ED 13:28 → PCU 13:37
PROVIDERS: Internal Medicine Cardiovascular Disease; Admitting Provider Student in an Organized Health Care Education/Training Program; Emergency Provider Emergency Medicine; PCP Student in an Organized Health Care Education/Training Program; Visit Provider Student in an Organized Health Care Education/Training Program
DX: I21.4 Non-ST elevation (NSTEMI) myocardial infarction (principal); E78.5 Hyperlipidemia, unspecified; I70.90 Unspecified atherosclerosis; K21.9 Gastro-esophageal reflux disease without esophagitis; I25.2 Old myocardial infarction; I25.10 Atherosclerotic heart disease of native coronary artery without angina pectoris; Z66 Do not resuscitate; R03.0 Elevated blood-pressure reading, without diagnosis of hypertension; Z79.82 Long term (current) use of aspirin
CPT/HCPCS: 36415; 71045; 80048; 80061; 83036; 84484; 85025; 85610; 85730; 93005; 93306; 93458; 99152; 99153; 99285; J7030; J7040; Q9957; Q9967; A4216; C1769; C1894; C8929